=== PATIENT | female | born 1995 | race Caucasian/White ===

== ENCOUNTER → 2017-01-05 01:20 | Emergency (ER) | payer OTHER ==
[2017-01-05 02:32] LABS: Hematocrit 35 % (35-47); Hemoglobin 11.8 g/dl (12.0-16.0); Mean Corpuscular HGB Conc 34 g/dl (31-36); Mean Corpuscular Hemoglobin 32 pg (27-31); Mean Corpuscular Volume 94 fL (80-97); Mean Platelet Volume 8 um3 (7.4-10.4); Red Blood Count 3.71 10^6/ul (4.0-5.4); Red Cell Distribution Width 13 % (10.5-15); White Blood Count 9.3 10^3/ul (3.5-10.8)
[2017-01-05 02:43] LABS: Acetaminophen < 15 mcg/mL; Alcohol 192 mg/dL (<10); Salicylate < 2.50 mg/dL (<30)
[2017-01-05 02:44] LABS: ALT 13 U/L (7-52); AST 19 U/L (13-39); Albumin 4.5 g/dL (3.2-5.2); Alkaline Phosphatase 53 U/L (34-104); Anion Gap 12 mmol/L (2-11); BUN/Creatinine Ratio 17.9 (8-20); Blood Urea Nitrogen 12 mg/dL (6-24); CO2 Carbon Dioxide 22 mmol/L (22-32); Calcium 9.3 mg/dL (8.6-10.3); Chloride 99 mmol/L (101-111); EGFR African American 145.8 (>60); EGFR Non-African American 113.4 (>60); Globulin 2.7 g/dL (2-4); Glucose 93 mg/dL (70-100); Sodium 133 mmol/L (133-145); Total Protein 7.2 g/dL (6.4-8.9)
[2017-01-05 02:47] LABS: Benzodiazepine Urine Screen None Detected (None Detect)
[2017-01-05 02:51] LABS: Urine Bacteria Absent (Absent); Urine Bilirubin Negative (Negative); Urine Glucose Negative (Negative); Urine Nitrite Negative (Negative)
[2017-01-05 02:54] LABS: TSH (Thyroid Stimulating Horm) 1.91 mcIU/mL (0.34-5.60)
--- NOTE | 2017-01-05 06:56 | ED ---
Migdalia Garcia Rebecca, scribed for Micky Marinelli MD on 01/05/17 at 0432 . Psychiatric Complaint - HPI Summary HPI Summary: Pt is a 21 y/o F BIBA who presents to ED as her friends were concerned about SIs. Pt confirms EtOH intoxication tonight, stating she "drank a lot." Notes vomiting [employer]. Pt denies SIs and HIs, though per nurse's notes, pt was [place] [facility] [place] due to concerns about SIs. Note states that she had been talking to her friends about how everyone is going to , stating that she needed to find somewhere high and jumping in the air. Friends, concerned for her safety, called EMS. - History Of Current Complaint Chief Complaint: EDMentalHealth Time Seen by Provider: 01/05/17 03:19 Hx Obtained From: Patient, EMS Onset/Duration: Resolved - Pt denies SIs Aggravating Factor(s): Nothing Alleviating Factor(s): Nothing Has Suicidal: Denies: Thoughts - Pt denies but friends were concerned Has Homicidal: Denies: Thoughts Ingestion History: Type/Name Of Drug - EtOH - Allergies/Home Medications Allergies/Adverse Reactions: Allergies Allergy/AdvReac Type Severity Reaction Status Date / Time No Known Allergies Allergy Verified 01/05/17 01:30 Home Medications: Home Medications NK [No Home Medications Reported] 01/05/17 [History Confirmed 01/05/17] PMH/Surg Hx/FS Hx/Imm Hx Endocrine/Hematology History: Denies: Hx Diabetes Cardiovascular History: Denies: Hx Coronary Artery Disease - Immunization History Date of Tetanus Vaccine: utd Date of Influenza Vaccine: unk Infectious Disease History: No Infectious Disease History: Denies: Traveled Outside the [place] in Last 30 Days - Family History Known Family History: Negative: Hypertension - Social History Alcohol Use: Weekly Substance Use Type: Reports: None Smoking Status (MU): Never Smoked Tobacco Review of Systems Negative: Fever Positive: Other - EtOH intoxication; Denies SIs and HIs - friends concerned about SIs All Other Systems Reviewed And Are Negative: Yes Physical Exam - Summary Physical Exam Summary: The patient is well-nourished in no acute distress and in no acute pain. Follow commands. The skin is warm and dry and skin color reflects adequate perfusion. No lacerations to the arms and legs. Good skin turgor. HEENT: The head is normocephalic and atraumatic. The pupils are equal and reactive. The sclera are injected. Nares are patent and without drainage. Mouth reveals moist mucous membranes and the throat is without erythema and exudate. The external ears are intact. The ear canals are patent and without drainage. The tympanic membranes are intact. Respiratory: Chest is non-tender. Lungs are clear to auscultation and breath sounds are symmetrical and equal. Cardiovascular: Hear is regular rate and rhythm. There is no murmur or rub auscultated. There is no peripheral edema and pulses are symmetrical and equal. Abdomen: The abdomen is soft and non-tender. There are normal bowel sounds heard in all four quadrants and there is no organomegaly palpated. Musculoskeletal: Extremities are non-tender with full range of motion. Good pulses distally. Neurological: Patient is alert and oriented to person, place and time. The patient has symmetrical motor strength in all four extremities. Cranial nerves are grossly intact. Deep tendon reflexes are symmetrical and equal in all four extremities. Psychiatric: The patient has an appropriate affect and does not exhibit any anxiety or depression. Triage Information Reviewed: Yes Vital Signs On Initial Exam: Initial Vitals Temp Pulse Resp BP Pulse Ox 98 F 99 16 125/80 97 01/05/17 01:24 01/05/17 01:24 01/05/17 01:24 01/05/17 01:24 01/05/17 01:24 Vital Signs Reviewed: Yes - [place] Coma Scale Coma Scale Total: 15 Diagnostics - Vital Signs Vital Signs Temp Pulse Resp BP Pulse Ox 01/05/17 01:24 98 F 99 16 125/80 97 - Laboratory Lab Results: Lab Results 01/05/17 01/05/17 01/05/17 Range/Units 01:32 01:32 01:51 WBC (3.5-10.8) 10^3/ul RBC (4.0-5.4) 10^6/ul Hgb (12.0-16.0) g/dl Hct (35-47) % MCV (80-97) fL MCH (27-31) pg MCHC (31-36) g/dl RDW (10.5-15) % Plt Count (150-450) 10^3/ul MPV (7.4-10.4) um3 Neut % (Auto) (38-83) % Lymph % (Auto) (25-47) % [place] % (Auto) (1-9) % Eos % (Auto) (0-6) % Baso % (Auto) (0-2) % Absolute Neuts (auto) (1.5-7.7) 10^3/ul Absolute Lymphs (auto) (1.0-4.8) 10^3/ul Absolute Monos (auto) (0-0.8) 10^3/ul Absolute Eos (auto) (0-0.6) 10^3/ul Absolute Basos (auto) (0-0.2) 10^3/ul Absolute Nucleated RBC 10^3/ul Nucleated RBC % Sodium 133 (133-145) mmol/L Potassium 4.0 (3.5-5.0) mmol/L Chloride 99 L (101-111) mmol/L Carbon Dioxide 22 (22-32) mmol/L Anion Gap 12 H (2-11) mmol/L BUN 12 (6-24) mg/dL Creatinine 0.67 (0.51-0.95) mg/dL Est GFR ( Amer) 145.8 (>60) Est GFR (Non-Af Amer) 113.4 (>60) BUN/Creatinine Ratio 17.9 (8-20) Glucose 93 (70-100) mg/dL Calcium 9.3 (8.6-10.3) mg/dL Total Bilirubin 0.40 (0.2-1.0) mg/dL AST 19 (13-39) U/L ALT 13 (7-52) U/L Alkaline Phosphatase 53 (34-104) U/L Total Protein 7.2 (6.4-8.9) g/dL Albumin 4.5 (3.2-5.2) g/dL Globulin 2.7 (2-4) g/dL Albumin/Globulin Ratio 1.7 (1-3) TSH 1.91 (0.34-5.60) mcIU/mL Beta HCG, Quant < 0.60 mIU/mL Urine Color Yellow Urine Appearance Clear Urine pH 5.0 (5-9) Ur Specific [place] 1.014 (1.010-1.030) Urine Protein Negative (Negative) Urine Ketones Negative (Negative) Urine Blood 3+ H (Negative) Urine Nitrate Negative (Negative) Urine Bilirubin Negative (Negative) Urine Urobilinogen Negative (Negative) Ur Leukocyte Esterase Trace H (Negative) Urine WBC (Auto) Trace(0-5/hpf) (Absent) Urine RBC (Auto) 3+(>10/hpf) H (Absent) Ur Squamous Epith Cells Present H (Absent) Urine Bacteria Absent (Absent) Urine Glucose Negative (Negative) Salicylates < 2.50 (<30) mg/dL Urine Opiates Screen None detected (None Detect) Acetaminophen < 15 mcg/mL Ur Barbiturates Screen None detected (None Detect) Ur Phencyclidine Scrn None detected (None Detect) Ur Amphetamines Screen None detected (None Detect) U Benzodiazepines Scrn None detected (None Detect) Urine Cocaine Screen None detected (None Detect) U Cannabinoids Screen None detected (None Detect) Serum Alcohol 192 H (<10) mg/dL 01/05/17 Range/Units 01:51 WBC 9.3 (3.5-10.8) 10^3/ul RBC 3.71 L (4.0-5.4) 10^6/ul Hgb 11.8 L (12.0-16.0) g/dl Hct 35 (35-47) % MCV 94 (80-97) fL MCH 32 H (27-31) pg MCHC 34 (31-36) g/dl RDW 13 (10.5-15) % Plt Count 257 (150-450) 10^3/ul MPV 8 (7.4-10.4) um3 Neut % (Auto) 82.9 (38-83) % Lymph % (Auto) 13.0 L (25-47) % [place] % (Auto) 3.5 (1-9) % Eos % (Auto) 0.2 (0-6) % Baso % (Auto) 0.4 (0-2) % Absolute Neuts (auto) 7.7 (1.5-7.7) 10^3/ul Absolute Lymphs (auto) 1.2 (1.0-4.8) 10^3/ul Absolute Monos (auto) 0.3 (0-0.8) 10^3/ul Absolute Eos (auto) 0 (0-0.6) 10^3/ul Absolute Basos (auto) 0 (0-0.2) 10^3/ul Absolute Nucleated RBC 0.01 10^3/ul Nucleated RBC % 0.1 Sodium (133-145) mmol/L Potassium (3.5-5.0) mmol/L Chloride (101-111) mmol/L Carbon Dioxide (22-32) mmol/L Anion Gap (2-11) mmol/L BUN (6-24) mg/dL Creatinine (0.51-0.95) mg/dL Est GFR ( Amer) (>60) Est GFR (Non-Af Amer) (>60) BUN/Creatinine Ratio (8-20) Glucose (70-100) mg/dL Calcium (8.6-10.3) mg/dL Total Bilirubin (0.2-1.0) mg/dL AST (13-39) U/L ALT (7-52) U/L Alkaline Phosphatase (34-104) U/L Total Protein (6.4-8.9) g/dL Albumin (3.2-5.2) g/dL Globulin (2-4) g/dL Albumin/Globulin Ratio (1-3) TSH (0.34-5.60) mcIU/mL Beta HCG, Quant mIU/mL Urine Color Urine Appearance Urine pH (5-9) Ur Specific [place] (1.010-1.030) Urine Protein (Negative) Urine Ketones (Negative) Urine Blood (Negative) Urine Nitrate (Negative) Urine Bilirubin (Negative) Urine Urobilinogen (Negative) Ur Leukocyte Esterase (Negative) Urine WBC (Auto) (Absent) Urine RBC (Auto) (Absent) Ur Squamous Epith Cells (Absent) Urine Bacteria (Absent) Urine Glucose (Negative) Salicylates (<30) mg/dL Urine Opiates Screen (None Detect) Acetaminophen mcg/mL Ur Barbiturates Screen (None Detect) Ur Phencyclidine Scrn (None Detect) Ur Amphetamines Screen (None Detect) U Benzodiazepines Scrn (None Detect) Urine Cocaine Screen (None Detect) U Cannabinoids Screen (None Detect) Serum Alcohol (<10) mg/dL Result Diagrams: 01/05/17 01:51 01/05/17 01:51 Lab Statement: Any lab studies that have been ordered have been reviewed, and results considered in the medical decision making process. Course/Dx - Course Assessment/Plan: Pt is a 21 y/o F BIBA who presents to ED as her friends were concerned about SIs. Pt confirms EtOH intoxication tonight, stating she "drank a lot." Notes vomiting [employer]. Pt denies SIs and HIs, though per nurse's notes, pt was [place] [facility] [place] due to concerns about SIs. Note states that she had been talking to her friends about how everyone is going to , stating that she needed to find somewhere high and jumping in the air. Friends, concerned for her safety, called EMS. Serum alcohol of 192. Pt will be signed out, pending dispo, awaiting MHE. - Differential Dx/Clinical Impression Differential Diagnosis/HQI/PQRI: Positive: Depression Provider Diagnosis: Acute alcohol intoxication Discharge - Discharge Plan Condition: Stable Disposition: OTHER Discharge Disposition Comment: Pt will be signed out, pending disposition, awaiting MHE Referrals: [facility] [Primary Care Provider] - The documentation as recorded by the Migdalia iqbal Rebecca accurately reflects the service I personally performed and the decisions made by me, Micky Marinelli MD.
[2017-01-05 07:26] VITALS: BP 115/77
--- NOTE | 2017-01-05 09:19 | CONSULT ---
Consult Consult: Ms. Tate made some vague suicidal and self harm statements and actions last night while intoxicated. She was medically cleared on a previous shift and had a MHE this AM. They felt that she was safe to go home and she will be D/C'd in stable condition with a diagnosis of alcohol intoxication.
== END ==
LOC: ED 01:20
DX: F10.129 Alcohol abuse with intoxication, unspecified (principal); R45.851 Suicidal ideations; Y90.6 Blood alcohol level of 120-199 mg/100 ml
CPT/HCPCS: 36415; 80053; 80307; 80320; 80329; 81003; 81015; 84443; 84702; 85025; 87086; 99285; G0480

== ENCOUNTER 2017-01-05 18:49 | Emergency (ER) | payer OTHER ==
[2017-01-05 20:26] LABS: Hematocrit 35 % (35-47); Hemoglobin 11.9 g/dl (12.0-16.0); Mean Corpuscular HGB Conc 34 g/dl (31-36); Mean Corpuscular Hemoglobin 31 pg (27-31); Mean Corpuscular Volume 94 fL (80-97); Mean Platelet Volume 7 um3 (7.4-10.4); Red Blood Count 3.77 10^6/ul (4.0-5.4); Red Cell Distribution Width 13 % (10.5-15)
[2017-01-05 20:39] LABS: Albumin 4.7 g/dL (3.2-5.2); BUN/Creatinine Ratio 22.1 (8-20); Calcium 9.8 mg/dL (8.6-10.3); EGFR African American 124.2 (>60); EGFR Non-African American 96.6 (>60); Globulin 2.5 g/dL (2-4); Magnesium 2.2 mg/dL (1.9-2.7); Potassium 3.9 mmol/L (3.5-5.0); Total Bilirubin 0.4 mg/dL (0.2-1.0); Total Protein 7.2 g/dL (6.4-8.9)
[2017-01-05 20:54] LABS: Urine Bacteria Absent (Absent); Urine Bilirubin Negative (Negative); Urine Glucose Negative (Negative); Urine Nitrite Negative (Negative)
[2017-01-06 01:35] VITALS: BP 121/74
--- NOTE | 2017-01-06 05:54 | ED ---
Jose Alfredo Garcia SooYoung, scribed for Micky Marinelli MD on 01/05/17 at 2143 . Neurological HPI - HPI Summary HPI Summary: A 21 y/o F presents to ED s/p witnessed sz at work [employer]. Denies PMHx/FHx of sz and febrile sz. 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 With episode lasting approx 30 secs. Denies tongue biting, urinary incontinence, fever, chills, dizziness, lightheadedness, abd pain, arthralgia, head trauma. She notes not having eaten or drinking much today. Pt was seen in ED yesterday for ETOH intoxication. She states she doesn' t typically drink so much, denies ETOH today. - History of Current Complaint Chief Complaint: EDSeizure Stated Complaint: HAD SEIZURE EARLIER (W/I 1 HR) Time Seen by Provider: 01/05/17 21:30 Hx Obtained From: Patient Onset/Duration: Sudden Onset, Resolved Current Severity: None Number of Seizures: 1 Pain Intensity: 0 Pain Scale Used: 0-10 Numeric Episode Lasting: Seconds/Minutes - approx 30 secs Syncope Context: Witnessed, Loss of Consciousness: Yes Associated Signs and Symptoms: Positive: Loss of Consciousness, Seizure, Decreased Oral Intake. Negative: Dizziness, Pain, Incontinent Bladder/Bowel, Lightheadness, Fever - Allergy/Home Medications Allergies/Adverse Reactions: Allergies Allergy/AdvReac Type Severity Reaction Status Date / Time No Known Allergies Allergy Verified 01/05/17 01:30 PMH/Surg Hx/FS Hx/Imm Hx Previously Healthy: Yes Endocrine/Hematology History: Denies: Hx Diabetes Cardiovascular History: Denies: Hx Coronary Artery Disease Neurological History: Denies: Hx Seizures Psychiatric History: Denies: Hx Eating Disorder, Hx of Violent Episodes Against Others - Immunization History Date of Tetanus Vaccine: utd Date of Influenza Vaccine: unk Infectious Disease History: No Infectious Disease History: Denies: Traveled Outside the [place] in Last 30 Days - Family History Known Family History: Negative: Hypertension, Seizure Disorder - Social History Occupation: Student Lives: With Family Alcohol Use: Weekly Hx Substance Use: No Substance Use Type: Reports: None Hx Tobacco Use: No Smoking Status (MU): Never Smoked Tobacco Review of Systems Negative: Fever, Chills Positive: Other - neg: tongue biting Negative: Abdominal Pain Negative: incontinence Negative: Arthralgia, Other - neg: head trauma Neurological: Other - pos: sz since resolved; neg: dizziness, lightheadedness Positive: Syncope - with OC All Other Systems Reviewed And Are Negative: Yes Physical Exam - Summary Physical Exam Summary: The patient is well-nourished in no acute distress and in no acute pain. The skin is warm and dry and skin color reflects adequate perfusion. HEENT: The head is normocephalic and atraumatic. The pupils are equal and reactive. EOMI / ALIRIO. The conjunctivae are clear and without drainage. Nares are patent and without drainage. Mouth reveals moist mucous membranes and the throat is without erythema and exudate. Tongue is midline. No evidence of oral trauma. The external ears are intact. The ear canals are patent and without drainage. The tympanic membranes are intact. Neck is supple with full range of motion and non-tender. There are no carotid bruits. There is no neck vein distension. Respiratory: Chest is non-tender. Lungs are clear to auscultation and breath sounds are symmetrical and equal. Cardiovascular: Hear is regular rate and rhythm. There is no murmur or rub auscultated. There is no peripheral edema and pulses are symmetrical and equal. Abdomen: The abdomen is soft and non-tender. There are normal bowel sounds heard in all four quadrants and there is no organomegaly palpated. Musculoskeletal: There is no back pain noted. Extremities are non-tender with full range of motion. There is good capillary refill. There is no peripheral edema or calf tenderness elicited. Neurological: Patient is alert and oriented to person, place and time. The patient has symmetrical motor strength in all four extremities. Cranial nerves are grossly intact. Deep tendon reflexes are symmetrical and equal in all four extremities. Not incontinent of urine. Psychiatric: The patient has an appropriate affect and does not exhibit any anxiety or depression. Triage Information Reviewed: Yes Vital Signs On Initial Exam: Initial Vitals Temp Pulse Resp BP Pulse Ox 98.9 F 61 16 117/77 100 01/05/17 19:12 01/05/17 19:12 01/05/17 19:12 01/05/17 19:12 01/05/17 19:12 Vital Signs Reviewed: Yes - [place] Coma Scale Coma Scale Total: 15 Diagnostics - Vital Signs Vital Signs Temp Pulse Resp BP Pulse Ox 01/05/17 19:12 98.9 F 61 16 117/77 100 - Laboratory Lab Results: Lab Results 01/05/17 01/05/17 01/05/17 Range/Units 20:14 20:14 20:14 WBC 9.0 (3.5-10.8) 10^3/ul RBC 3.77 L (4.0-5.4) 10^6/ul Hgb 11.9 L (12.0-16.0) g/dl Hct 35 (35-47) % MCV 94 (80-97) fL MCH 31 (27-31) pg MCHC 34 (31-36) g/dl RDW 13 (10.5-15) % Plt Count 268 (150-450) 10^3/ul MPV 7 L (7.4-10.4) um3 Neut % (Auto) 76.5 (38-83) % Lymph % (Auto) 15.4 L (25-47) % [place] % (Auto) 7.5 (1-9) % Eos % (Auto) 0.2 (0-6) % Baso % (Auto) 0.4 (0-2) % Absolute Neuts (auto) 6.9 (1.5-7.7) 10^3/ul Absolute Lymphs (auto) 1.4 (1.0-4.8) 10^3/ul Absolute Monos (auto) 0.7 (0-0.8) 10^3/ul Absolute Eos (auto) 0 (0-0.6) 10^3/ul Absolute Basos (auto) 0 (0-0.2) 10^3/ul Absolute Nucleated RBC 0 10^3/ul Nucleated RBC % 0 Sodium 137 (133-145) mmol/L Potassium 3.9 (3.5-5.0) mmol/L Chloride 102 (101-111) mmol/L Carbon Dioxide 27 (22-32) mmol/L Anion Gap 8 (2-11) mmol/L BUN 17 (6-24) mg/dL Creatinine 0.77 (0.51-0.95) mg/dL Est GFR ( Amer) 124.2 (>60) Est GFR (Non-Af Amer) 96.6 (>60) BUN/Creatinine Ratio 22.1 H (8-20) Glucose 80 (70-100) mg/dL Lactic Acid 1.9 (0.5-2.0) mmol/L Calcium 9.8 (8.6-10.3) mg/dL Magnesium 2.2 (1.9-2.7) mg/dL Total Bilirubin 0.40 (0.2-1.0) mg/dL AST 19 (13-39) U/L ALT 13 (7-52) U/L Alkaline Phosphatase 53 (34-104) U/L Troponin I 0.00 (<0.04) ng/mL Total Protein 7.2 (6.4-8.9) g/dL Albumin 4.7 (3.2-5.2) g/dL Globulin 2.5 (2-4) g/dL Albumin/Globulin Ratio 1.9 (1-3) Urine Color Urine Appearance Urine pH (5-9) Ur Specific [place] (1.010-1.030) Urine Protein (Negative) Urine Ketones (Negative) Urine Blood (Negative) Urine Nitrate (Negative) Urine Bilirubin (Negative) Urine Urobilinogen (Negative) Ur Leukocyte Esterase (Negative) Urine WBC (Auto) (Absent) Urine RBC (Auto) (Absent) Ur Squamous Epith Cells (Absent) Urine Bacteria (Absent) Hyaline Casts (Absent) Urine Glucose (Negative) 01/05/17 Range/Units 20:15 WBC (3.5-10.8) 10^3/ul RBC (4.0-5.4) 10^6/ul Hgb (12.0-16.0) g/dl Hct (35-47) % MCV (80-97) fL MCH (27-31) pg MCHC (31-36) g/dl RDW (10.5-15) % Plt Count (150-450) 10^3/ul MPV (7.4-10.4) um3 Neut % (Auto) (38-83) % Lymph % (Auto) (25-47) % [place] % (Auto) (1-9) % Eos % (Auto) (0-6) % Baso % (Auto) (0-2) % Absolute Neuts (auto) (1.5-7.7) 10^3/ul Absolute Lymphs (auto) (1.0-4.8) 10^3/ul Absolute Monos (auto) (0-0.8) 10^3/ul Absolute Eos (auto) (0-0.6) 10^3/ul Absolute Basos (auto) (0-0.2) 10^3/ul Absolute Nucleated RBC 10^3/ul Nucleated RBC % Sodium (133-145) mmol/L Potassium (3.5-5.0) mmol/L Chloride (101-111) mmol/L Carbon Dioxide (22-32) mmol/L Anion Gap (2-11) mmol/L BUN (6-24) mg/dL Creatinine (0.51-0.95) mg/dL Est GFR ( Amer) (>60) Est GFR (Non-Af Amer) (>60) BUN/Creatinine Ratio (8-20) Glucose (70-100) mg/dL Lactic Acid (0.5-2.0) mmol/L Calcium (8.6-10.3) mg/dL Magnesium (1.9-2.7) mg/dL Total Bilirubin (0.2-1.0) mg/dL AST (13-39) U/L ALT (7-52) U/L Alkaline Phosphatase (34-104) U/L Troponin I (<0.04) ng/mL Total Protein (6.4-8.9) g/dL Albumin (3.2-5.2) g/dL Globulin (2-4) g/dL Albumin/Globulin Ratio (1-3) Urine Color Yellow Urine Appearance Clear Urine pH 5.0 (5-9) Ur Specific [place] 1.023 (1.010-1.030) Urine Protein 1+(30 mg/dl) H (Negative) Urine Ketones Trace H (Negative) Urine Blood 2+ H (Negative) Urine Nitrate Negative (Negative) Urine Bilirubin Negative (Negative) Urine Urobilinogen Negative (Negative) Ur Leukocyte Esterase Trace H (Negative) Urine WBC (Auto) Trace(0-5/hpf) (Absent) Urine RBC (Auto) 3+(>10/hpf) H (Absent) Ur Squamous Epith Cells Present H (Absent) Urine Bacteria Absent (Absent) Hyaline Casts Present H (Absent) Urine Glucose Negative (Negative) Result Diagrams: 01/05/17 20:14 01/05/17 20:14 Lab Statement: Any lab studies that have been ordered have been reviewed, and results considered in the medical decision making process. - CT HEAD CT Interpretation: Positive (See Comments) - IMPRESSION: No acute intracranial hemorrhage mass effect or midline shift. If clinically indicated followup outpatient MRI of brain sz protocol may be needed. ED physician has reviewed this radiology report and agrees. CT Interpretation Completed By: Radiologist - EKG 2019 Cardiac Rate: NL - 66bpm EKG Rhythm: Sinus Rhythm ST Segment: Normal - no STEMI EKG Interpretation: nml axis Re-Evaluation - Re-Evaluation 1 Re-Evaluation Time: :23 Change: Improved Comment: Discussing CT results with pt. Pt voiced understanding. Course/Dx - Course Course Of Treatment: Pt is a 21 y/o F presenting s/p witnessed sz at work [employer]. Denies PMHx/FHx of sz and febrile sz. 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 With episode lasting approx 30 secs. Denies tongue biting, urinary incontinence, fever, chills, dizziness, lightheadedness, abd pain, arthralgia, head trauma. She notes not having eaten or drinking much today. Pt was seen in ED yesterday for ETOH intoxication. She states she doesn't typically drink so much, denies ETOH today. Bloodwork is without significant abnormalities. UA results show 1+ protein, trace ketones, 2+ blood, trace esterase, 3+ RBC, and hyaline casts and squamous epithelia present. EKG is NSR, no STEMI. BRAIN CT shows "No acute intracranial hemorrhage mass effect or midline shift. If clinically indicated followup outpatient MRI of brain sz protocol may be needed.". Will D/C home to f/u with neuro and [facility] to schedule EEG. - Differential Dx Differential Diagnoses Neuro: Positive: Seizure Disorder, Vasovagal Reaction, Other - syncope, alcohol withdraw, dehydration - Diagnoses Provider Diagnoses: Syncope Discharge - Discharge Plan Condition: Stable Disposition: HOME Patient Education Materials: Syncope (ED), New-Onset Seizure in Adults (ED) Referrals: [facility] [Primary Care Provider] - 01/08/17 Fátima Lance MD [Medical Doctor] - 01/08/17 Additional Instructions: Follow up at [facility] on Sunday to have them order/schedule an EEG. Follow up with Dr. Lance, neurology, for possible seizure disorder on Sunday. Please return to the ED if you experience new or worsening symptoms. The documentation as recorded by the Jose Alfredo iqbal SooYoung accurately reflects the service I personally performed and the decisions made by me, Micky Marinelli MD.
--- NOTE | 2017-01-06 07:34 | RAD ---
INDICATION: Seizure COMPARISON: None. TECHNIQUE: Contiguous axial sections of the brain were obtained from the skull base to the vertex without contrast. FINDINGS: The ventricles, cisterns and sulci are within normal limits. The romo-white matter differentiation is adequately maintained and there is no sulcal effacement. No significant focal abnormality or mass effect is present. There is no evidence for intracranial hemorrhage. No significant focal osseous abnormality is present. The visualized portion of the paranasal sinuses and mastoid air cells appear clear. IMPRESSION: Normal CT of the brain.
== END 2017-01-06 01:33 | disposition home or self-care (01) ==
LOC: ED 18:49
DX: R55 Syncope and collapse (principal)
CPT/HCPCS: 36415; 70450; 80053; 81003; 83605; 83735; 84484; 85025; 93005; 99284

== ENCOUNTER 2017-01-07 03:35 | Emergency (ER) | payer OTHER ==
[2017-01-07 04:09] LABS: Hematocrit 35 % (35-47); Hemoglobin 12.1 g/dl (12.0-16.0); Mean Corpuscular HGB Conc 34 g/dl (31-36); Mean Corpuscular Hemoglobin 32 pg (27-31); Mean Corpuscular Volume 95 fL (80-97); Mean Platelet Volume 7 um3 (7.4-10.4); Red Blood Count 3.73 10^6/ul (4.0-5.4); Red Cell Distribution Width 13 % (10.5-15); White Blood Count 7.6 10^3/ul (3.5-10.8)
[2017-01-07 04:11] LABS: Urine Nitrite Negative (Negative)
[2017-01-07 04:12] LABS: Urine Bilirubin Negative (Negative); Urine Glucose Negative (Negative)
[2017-01-07 04:22] LABS: ALT 12 U/L (7-52); AST 17 U/L (13-39); Acetaminophen < 15 mcg/mL; Albumin 4.8 g/dL (3.2-5.2); Alcohol 155 mg/dL (<10); Alkaline Phosphatase 54 U/L (34-104); Anion Gap 9 mmol/L (2-11); BUN/Creatinine Ratio 17.3 (8-20); Blood Urea Nitrogen 14 mg/dL (6-24); CO2 Carbon Dioxide 26 mmol/L (22-32); Calcium 9.1 mg/dL (8.6-10.3); Chloride 106 mmol/L (101-111); EGFR African American 117.1 (>60); EGFR Non-African American 91.1 (>60); Globulin 2.4 g/dL (2-4); Glucose 95 mg/dL (70-100); Salicylate < 2.50 mg/dL (<30); Sodium 141 mmol/L (133-145); Total Protein 7.2 g/dL (6.4-8.9)
[2017-01-07 04:24] LABS: Benzodiazepine Urine Screen None Detected (None Detect)
[2017-01-07 04:33] LABS: TSH (Thyroid Stimulating Horm) 1.44 mcIU/mL (0.34-5.60)
--- NOTE | 2017-01-07 06:21 | ED ---
Migdalia Garcia Rebecca, scribed for Micky Marinelli MD on 01/07/17 at 0447 . Psychiatric Complaint - HPI Summary HPI Summary: Pt is a 21 y/o F BIBA who presents to ED for a MHE.When aske why EMS was called she states "because I like to go on nice walks late at night, while drunk apparently." Denies hallucinations and sleep disturbances. Denies any pain, including abdominal pain. No PMHx depression. Pt has been seen multiple times in the ED recently. Pt reports that her friends called 911 because "I literally just wanted to go on a walk and they decided that was not okay." Level 5 caveat due to EtOH intoxication. - History Of Current Complaint Chief Complaint: [facility] Time Seen by Provider: 01/07/17 03:38 Hx Obtained From: Patient Hx From Patient Unobtainable Due To: Other - EtOH intoxication Severity Currently: None Aggravating Factor(s): Nothing Alleviating Factor(s): Nothing Associated Signs And Symptoms: Negative: Sleep Disturbance Ingestion History: Type/Name Of Drug - EtOH intoxication - Allergies/Home Medications Allergies/Adverse Reactions: Allergies Allergy/AdvReac Type Severity Reaction Status Date / Time No Known Allergies Allergy Verified 01/05/17 01:30 PMH/Surg Hx/FS Hx/Imm Hx Endocrine/Hematology History: Denies: Hx Diabetes Cardiovascular History: Denies: Hx Coronary Artery Disease Neurological History: Denies: Hx Seizures Psychiatric History: Denies: Hx Eating Disorder, Hx of Violent Episodes Against Others - Immunization History Date of Tetanus Vaccine: utd Date of Influenza Vaccine: unk Infectious Disease History: No Infectious Disease History: Denies: Traveled Outside the [place] in Last 30 Days - Family History Known Family History: Negative: Hypertension, Seizure Disorder - Social History Alcohol Use: Weekly Hx Substance Use: No Substance Use Type: Reports: None Hx Tobacco Use: No Smoking Status (MU): Never Smoked Tobacco Review of Systems - ROS Summary Review of Systems Summary: Level 5 caveat due to EtOH intoxication. Positive: Other - EtOH intoxication All Other Systems Reviewed And Are Negative: No Physical Exam - Summary Physical Exam Summary: Level 5 caveat due to EtOH intoxication. The patient is alert. The skin is warm and dry and skin color reflects adequate perfusion. HEENT: The head is normocephalic and atraumatic. The pupils are equal and reactive. The conjunctivae are clear and without drainage. Nares are patent and without drainage. Mouth reveals moist mucous membranes and the throat is without erythema and exudate. The external ears are intact. The ear canals are patent and without drainage. The tympanic membranes are intact. Neck is supple with full range of motion and non-tender. Respiratory: Chest is non-tender. Lungs are clear to auscultation and breath sounds are symmetrical and equal. Cardiovascular: Hear is regular rate and rhythm. There is no murmur or rub auscultated. There is no peripheral edema and pulses are symmetrical and equal. Abdomen: The abdomen is soft and non-tender. Musculoskeletal: There is no back pain noted. Extremities are non-tender with full range of motion. There is good capillary refill. Neurological: Patient is alert and cooperative. No neurological deficits. . Triage Information Reviewed: Yes Vital Signs On Initial Exam: Initial Vitals Temp Pulse Resp BP Pulse Ox 99.6 F 77 16 99/61 100 01/07/17 03:54 01/07/17 03:54 01/07/17 03:54 01/07/17 03:54 01/07/17 03:54 Vital Signs Reviewed: Yes Completion Of Physical Exam Limited Due To: Level 5 - [place] Coma Scale Coma Scale Total: 15 Diagnostics - Vital Signs Vital Signs Temp Pulse Resp BP Pulse Ox 01/07/17 03:54 99.6 F 77 16 99/61 100 - Laboratory Lab Results: Lab Results 01/07/17 01/07/17 Range/Units 03:50 03:55 WBC 7.6 (3.5-10.8) 10^3/ul RBC 3.73 L (4.0-5.4) 10^6/ul Hgb 12.1 (12.0-16.0) g/dl Hct 35 (35-47) % MCV 95 (80-97) fL MCH 32 H (27-31) pg MCHC 34 (31-36) g/dl RDW 13 (10.5-15) % Plt Count 270 (150-450) 10^3/ul MPV 7 L (7.4-10.4) um3 Neut % (Auto) 72.3 (38-83) % Lymph % (Auto) 23.3 L (25-47) % [place] % (Auto) 3.8 (1-9) % Eos % (Auto) 0.3 (0-6) % Baso % (Auto) 0.3 (0-2) % Absolute Neuts (auto) 5.5 (1.5-7.7) 10^3/ul Absolute Lymphs (auto) 1.8 (1.0-4.8) 10^3/ul Absolute Monos (auto) 0.3 (0-0.8) 10^3/ul Absolute Eos (auto) 0 (0-0.6) 10^3/ul Absolute Basos (auto) 0 (0-0.2) 10^3/ul Absolute Nucleated RBC 0 10^3/ul Nucleated RBC % 0 Urine Color Straw Urine Appearance Clear Urine pH 5.5 (5-9) Ur Specific [place] 1.010 (1.010-1.030) Urine Protein Negative (Negative) Urine Ketones Negative (Negative) Urine Blood Negative (Negative) Urine Nitrate Negative (Negative) Urine Bilirubin Negative (Negative) Urine Urobilinogen Negative (Negative) Ur Leukocyte Esterase Negative (Negative) Urine Glucose Negative (Negative) Result Diagrams: 01/07/17 03:55 01/07/17 03:55 Lab Statement: Any lab studies that have been ordered have been reviewed, and results considered in the medical decision making process. Course/Dx - Course Assessment/Plan: Pt is a 21 y/o F BIBA who presents to ED for a MHE.When aske why EMS was called she states "because I like to go on nice walks late at night , while drunk apparently." Denies hallucinations and sleep disturbances. Denies any pain, including abdominal pain. No PMHx depression. Pt has been seen multiple times in the ED recently. Pt reports that her friends called 911 because "I literally just wanted to go on a walk and they decided that was not okay.". Level 5 caveat due to EtOH intoxication. Serum alcohol of 155. Pt will be signed out, pending disposition, awaiting EtOH metabolism and MHE. - Differential Dx/Clinical Impression Provider Diagnosis: Acute alcoholic intoxication, Depression Discharge - Discharge Plan Condition: Stable Disposition: OTHER Discharge Disposition Comment: Pt will be signed out, pending disposition, awaiting MHE Referrals: [facility] [Primary Care Provider] - The documentation as recorded by the scribe, DiFabio,Violeta accurately reflects the service I personally performed and the decisions made by me, Micky Marinelli MD.
[2017-01-07 09:37] VITALS: BP 102/66
== END 2017-01-07 11:07 | disposition home or self-care (01) ==
LOC: ED 03:35
DX: F10.129 Alcohol abuse with intoxication, unspecified (principal); Y90.6 Blood alcohol level of 120-199 mg/100 ml; F32.9 Major depressive disorder, single episode, unspecified
CPT/HCPCS: 36415; 80053; 80307; 80320; 80329; 81003; 84443; 84702; 85025; 99284; G0480